=== PATIENT | male | born 1955 | race Caucasian/White ===

== ENCOUNTER 2018-01-21 09:13 | Day surgery (SDC) | payer BC ==
[2018-01-16 15:10] VITALS: BMI 26.9
[2018-01-21 09:35] VITALS: RESP 16; TEMP 97.2
[2018-01-21] MEDS: LACTATED RINGERS 1,000 ML IV SCH ×2 (09:53→10:01)
[2018-01-21] MEDS ORDERED: LIDOCAINE 1% 20 ML VIAL (10MG/ML) FOR IV START SQ ONE (09:53)
[2018-01-21] MEDS ORDERED: PROPOFOL 10 MG/ML 20 ML VIAL IV ONE (10:08)
[2018-01-21] MEDS ORDERED: LIDOCAINE 1% INJ 10MG/ML (20 ML MDV) ONE (10:08)
--- NOTE | 2018-01-21 10:36 | P.PCN ---
Date of Procedure: 01/21/18 Procedure(s) Performed: Procedure: Colonoscopy and polypectomy. Preoperative diagnosis: Screening for neoplasia. Postoperative diagnosis: Small polyp distal sigmoid snared but no large polyps or cancer. Preparation: HalfLytely prep. Sedation: Was provided by anesthesia. Brief clinical history: The patient is a 62-year-old male who is scheduled for this evaluation for screening for neoplasia age being his risk factor. He has no abdominal complaints, bleeding or anemia. His prior exam was around 10 years ago. Procedure: With the patient on his left lateral decubitus position and after informed consent and adequate sedation, the perianal area was inspected and it did not show any fissures or fistulas. There were no masses felt on digital rectal examination. The Olympus CFQ 160L video colonoscope was then inserted in the rectum in the usual fashion and advanced to the cecum. There was a small polyp in the distal sigmoid which was snared and retrieved by suction, but there were no large polyps or cancer. No obvious diverticular disease or other pathology. I retroflexed the endoscope in the rectum before the endoscope was withdrawn. The patient tolerated the procedure well. Plan: The patient was reassured. Will await pathology results. I anticipate repeating this exam in around 5 years. He will follow up with you as planned.
[2018-01-21 10:49] VITALS: BP 117/71; PULSE 51
== END 2018-01-21 11:18 | disposition home or self-care (01) ==
LOC: ORWHC2ENDO 09:13
DX: Z12.11 Encounter for screening for malignant neoplasm of colon (principal); D12.5 Benign neoplasm of sigmoid colon; M10.9 Gout, unspecified; Z79.899 Other long term (current) drug therapy
CPT/HCPCS: 88305; 45385; J2001; J2704

== ENCOUNTER 2023-05-29 10:45 | Day surgery (SDC) | payer MEDICARE, BC ==
[2023-05-23 11:15] VITALS: BMI 25.7
[2023-05-29] MEDS ORDERED: LACTATED RINGERS 1,000 ML IV SCH (11:01)
[2023-05-29] MEDS ORDERED: LIDOCAINE 1% (10MG/ML) FOR IV START INTRADERMA PRN (11:01)
[2023-05-29 11:05] VITALS: TEMP 97.9
[2023-05-29] MEDS ORDERED: LIDOCAINE 2% INJ 20 MG/ML (2 ML VIAL) ONE (11:37)
[2023-05-29] MEDS ORDERED: PROPOFOL 10 MG/ML 20 ML VIAL IV ONE (11:37)
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
--- NOTE | 2023-05-29 11:58 | P.PCN ---
Date of Procedure: 05/29/23 Procedure(s) Performed: PREOPERATIVE DIAGNOSIS: Screening with history of polyps POSTOPERATIVE DIAGNOSIS: Multiple colon polyps PROCEDURE: Colonoscopy with snare polypectomy ANESTHESIA: MAC SURGEON: Chirag Damon M.D. SPECIMENS: Polyps ENDOSCOPIC PROCEDURE: The patient was placed on the endoscopy table in the left decubitus position. The Olympus colonoscope was inserted into the anus and passed under direct visualization to the base of the cecum. The appendiceal orifice was visualized. From that point the scope was slowly withdrawn inspecting all surfaces carefully. There was a polyp at the base of the cecum. This was removed using the snare with cautery technique. The ascending and transverse colon appeared normal. In the descending colon the patient had 2 polyps both removed using the snare with cautery technique. In the sigmoid colon an additional polyp was removed in a similar fashion. The rectum appeared normal. There was no significant diverticular disease noted. Digital rectal examination was normal. The patient was taken to the recovery room in stable condition per anesthesia guidelines. RECOMMENDATIONS: Await biopsy results. Repeat colonoscopy 5 years.
[2023-05-29 12:17] VITALS: RESP 18
[2023-05-29 12:32] VITALS: BP 164/85
[2023-05-29 12:35] VITALS: PULSE 58
== END 2023-05-29 12:45 | disposition home or self-care (01) ==
LOC: ORWHC2ENDO 10:45
PROVIDERS: ATTEND Surgery
DX: Z12.11 Encounter for screening for malignant neoplasm of colon (principal); D12.4 Benign neoplasm of descending colon; D12.5 Benign neoplasm of sigmoid colon; I10 Essential (primary) hypertension; Z86.010 Personal history of colon polyps; Z87.891 Personal history of nicotine dependence; Z79.899 Other long term (current) drug therapy
CPT/HCPCS: 88305; 45385; J2704; J2001

== ENCOUNTER → 2024-01-17 | Outpatient (CLI) | payer MEDICARE, BC ==
--- NOTE | 2024-01-17 08:46 | US ---
EXAMINATION TYPE: US duplex aorta DATE OF EXAM: 01/17/2024 COMPARISON: NONE CLINICAL INDICATION: Male, 68 years old with history of Z13.6 SCREENING FOR CARDIOVASCULAR DISORDERS; screening TECHNIQUE: Multiple sonographic images of the abdominal aorta are obtained. FINDINGS: EXAM MEASUREMENTS: Abdominal Aorta: Proximal: 2.1 x 2.1cm Mid: 2.2 x 2.3cm Distal: 2.0 x 1.9cm Bifurcation: obscured FIRE ASSISTANT NOTES: Technical limitations due to large amount of overlying bowel gas. Bifurcation ob scured. No evidence of AAA within visualized portions at this time IMPRESSION: No evidence for abdominal aortic aneurysm.
== END | disposition home or self-care (01) ==
LOC: RADUSWWP 07:43
PROVIDERS: ATTEND Family Medicine
DX: Z13.6 Encounter for screening for cardiovascular disorders (principal)
CPT/HCPCS: 76706

== ENCOUNTER → 2024-06-04 | Outpatient (CLI) | payer MEDICARE, BC ==
--- NOTE | 2024-06-24 11:24 | MR ---
Patient: Eusebio Wick R Ordering Physician: Unknown, Unknown ID: [id number] Phone, Pager: Phone: N/A Pager: N/A : [phone] Age/Gender: 68Y, M Primary Location: N/A Procedure: MRI PROSTATE W/WO Stud y Date: 06/04/2024 6:53:27 AM EXAMINATION TYPE: MR Prostate wo/w con DATE OF EXAM: 06/07/2024 11:51 AM COMPARISON: None. CLINICAL INDICATION: Elevated PSA TECHNIQUE: Multi-planar, multi-sequence imaging of the pelvis is performed prior to and following the uncomplicated administration of bolus intravenous gadolinium. CONTRAST: 9 cc Gadavist Interpretive Criteria: PI-RADS v2.1 SERUM PSA: 4.65, 12/2023 SURGICAL PATHOLOGY: No data available. FINDINGS: Prostatic dimensions: 4.4 x 4.5 x 3.7 cm. "Bullet" Volume:47.95 (PSA density=0.10 ng/mL/mL) CENTRAL GLAND (Central and Transition Zones/CZ+TZ): Multiple bilateral, heterogenous appearing hypertrophic stromal nodules, without suspicious lesion. ( PI-RADS 2) PERIPHERAL ZONE (PZ): Posterior right lateral right peripheral zone apex measuring 10 x 8 mm. (PI-RADS 4) SEMINAL VESICLES (SV): Symmetric and unremarkable. PERIPROSTATIC TISSUES: Unremarkable. LYMPH NODES: No enlarged pelvic lymph node. REMAINING PELVIS: Bladder wall is within normal limits given distention. No abnormal free or organized intrapelvic fluid collection. No pathologic bowel dilation or mural thickening. Right fat containing inguinal hernia OSSEOUS STRUCTURES: No suspicious osseous abnormality. IMPRESSION: 1. PI-RADS 4 lesion right peripheral zone apex measuring 10 x 8 mm 2. Mild BPH, estimated gland volume 47.95 mL. 3. No suspicious osseous lesion. No lymphadenopathy. No evidence of prostate adenocarcinoma involving the periprostatic tissues.a
== END | disposition home or self-care (01) ==
LOC: RADMRIMAIN 07:17
PROVIDERS: ATTEND Urology
DX: C61 Malignant neoplasm of prostate (principal); N40.0 Benign prostatic hyperplasia without lower urinary tract symptoms; R97.20 Elevated prostate specific antigen [PSA]
CPT/HCPCS: 72197; A9585

== ENCOUNTER → 2024-07-01 | Outpatient (CLI) | payer MEDICARE, BC ==
[2024-07-01 15:33] LABS: Basophils # (A) 0.03 X 10*3/uL (0.00-0.10); Basophils % (A) 0.4 %; Eosinophils # (A) 0.36 X 10*3/uL (0.04-0.35); Eosinophils % (A) 4.9 %; HCT 40.6 % (39.6-50.0); HGB 13.2 g/dL (13.0-17.0); Lymphocytes # (A) 1.74 X 10*3/uL (0.90-5.00); Lymphocytes % (A) 23.5 %; MCH 31.4 pg (27.0-32.0); MCHC 32.5 g/dL (32.0-37.0); MCV 96.7 FL (80.0-97.0); Mean Platelet Volume 9.8 FL (9.5-12.2); Monocytes # (A) 0.51 X 10*3/uL (0.20-1.00); Monocytes % (A) 6.9 %; NRBC Per 100 WBC 0 X 10*3/uL (0.00-0.01); Neutrophils # (A) 4.75 X 10*3/uL (1.80-7.70); Platelet Count 214 X 10*3/uL (140-440); RDW 11.9 % (11.5-14.5); WBC 7.41 X 10*3/uL (4.50-10.00)
[2024-07-01 15:40] LABS: Blood Urea Nitrogen 14.4 mg/dL (9.0-27.0); Calcium 9.4 mg/dL (8.7-10.3); Carbon Dioxide 23.5 mmol/L (21.6-31.8); Chloride 108 mmol/L (96-109); Glucose 103 mg/dL (70-110); Potassium 4.8 mmol/L (3.5-5.5); Sodium 141 mmol/L (135-145)
[2024-07-01 16:24] LABS: Appearance,Urine Clear (Clear); Bilirubin,Urine Negative (Negative); Blood,Urine Negative (Negative); Color,Urine Yellow (Yellow); Ketones,Urine Negative (Negative); Nitrite,Urine Negative (Negative); Specific Gravity,Urine 1.016 (1.001-1.030); Urobilinogen,Urine 0.2 E.U./DL
== END | disposition home or self-care (01) ==
LOC: LABPAT 10:16
PROVIDERS: ATTEND Urology
DX: C61 Malignant neoplasm of prostate (principal)
CPT/HCPCS: 80048; 81003; 85025; 86850; 86900; 86901; 87086

== ENCOUNTER 2024-07-11 05:40 | Day surgery (SDC) | payer MEDICARE, BC ==
[2024-07-08 09:15] VITALS: BMI 25.0
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
[2024-07-11] MEDS: IV FLUID CONTINUATION 1,000 ML IV ONE ×4 (06:15)
[2024-07-11] MEDS: MIDAZOLAM 2 MG/2 ML VIAL IV ONE (07:09)
[2024-07-11] MEDS ORDERED: LIDOCAINE 1% (10MG/ML) FOR IV START INTRADERMA PRN (07:11)
--- NOTE | 2024-07-11 07:25 | P.ANPRN ---
Procedure Note - Anesthesia - Nerve Block Performed Bilateral Erector Spinae Single Time Out Performed: Yes Date of Procedure: 07/11/24 Procedure Start Time: : Procedure Stop Time: :18 Location of Patient: PreOp Indication: Acute Post-Operative Pain, Analgesia, Requested by Surgeon Sedation Type: Sedate with meaningful contact maintained Preparation: Sterile Prep Position: Prone Catheter: None Needle Types: Pajunk Needle Gauge: 21 Ultrasound used to visualize needle placement: Yes Ultrasound used to observe medication spread: Yes Injectate: 0.5% Ropivacaine (see comment for volume) (Ropiv 20ml+Decadron 4mg--- Each side. Needle level T11) Blood Aspirated: No Pain Paresthesia on Injection Noted: No Resistance on Injection: Normal Image Stored and Saved: Yes Events: Uneventful and Well Tolerated
[2024-07-11] MEDS ORDERED: NEOSTIGMINE 1 MG/ML 10 ML VIAL ONE (07:33)
[2024-07-11] MEDS ORDERED: PROPOFOL 10 MG/ML 20 ML VIAL IV ONE (07:33)
[2024-07-11] MEDS ORDERED: LIDOCAINE 1% INJ 10MG/ML (20 ML MDV) ONE (07:33)
[2024-07-11] MEDS ORDERED: WATER FOR INJECTION, STERILE 10 ML VIAL IV ONE (07:33)
[2024-07-11] MEDS: DEXAMETHASONE SOD PHOSPHATE 4 MG/ML 1 ML VIAL IV ONE (07:33)
[2024-07-11] MEDS ORDERED: fentaNYL (PF) 50 MCG/ML 2 ML AMP ONE (07:33)
[2024-07-11] MEDS ORDERED: SUCCINYLCHOLINE CHLORIDE 200 MG/10 ML VIAL IV ONE (07:33)
[2024-07-11] MEDS: ONDANSETRON 4 MG/2 ML VIAL IVP ONE (07:33)
[2024-07-11] MEDS ORDERED: KETAMINE HCL IN 0.9 % NACL 50 MG/5 ML SYRINGE ONE (07:33)
[2024-07-11] MEDS ORDERED: ePHEDrine 50 MG/ML 1 ML VIAL ONE (07:33)
[2024-07-11] MEDS ORDERED: ROCURONIUM 10 MG/ML (5 ML VIAL) IV ONE (07:33)
[2024-07-11] MEDS ORDERED: MIDAZOLAM 2 MG/2 ML VIAL ONE (07:33)
[2024-07-11] MEDS ORDERED: DEXAMETHASONE SOD PHOSPHATE 4 MG/ML 1 ML VIAL ONE (07:33)
[2024-07-11] MEDS ORDERED: GLYCOPYRROLATE 0.2 MG/ML 2 ML VIAL ONE (07:33)
[2024-07-11] MEDS ORDERED: ROPIVACAINE 5 MG/ML 30 ML VIAL ONE (07:33)
[2024-07-11] MEDS: HEPARIN SODIUM,PORCINE 5,000 UNIT/ML 1 ML VIAL SQ PRN (07:34)
[2024-07-11] MEDS: LACTATED RINGERS 1,000 ML IV SCH (07:35)
[2024-07-11] MEDS: BUPIVACAINE (PF) 0.25% 30 ML VIAL SQ ONE ×2 (08:06→11:20)
[2024-07-11] MEDS ORDERED: ONDANSETRON 4 MG/2 ML VIAL IVP PRN (11:35)
[2024-07-11] MEDS ORDERED: HYDROcodone/APAP 5-325MG 1 EACH TAB PO PRN (11:36)
[2024-07-11] MEDS: HYDROmorphone 0.5 MG/0.5 ML SYRINGE IVP PRN (11:40)
[2024-07-11] MEDS: droPERidol 5 MG/2 ML VIAL IVP ONE (15:08)
[2024-07-11] MEDS: DEXTROSE 5%-0.45% NACL 1,000 ML IV SCH (15:09)
[2024-07-11] MEDS: KETOROLAC 15 MG/ML 1 ML VIAL IVP SCH (15:09)
[2024-07-11] MEDS: HEPARIN SODIUM,PORCINE 5,000 UNIT/ML 1 ML VIAL SQ SCH (15:30)
--- NOTE | 2024-07-11 16:53 | P.OP ---
Date of Procedure: 07/11/24 Preoperative Diagnosis: prostate cancer Postoperative Diagnosis: Same Procedure(s) Performed: Robotic assisted laparoscopic radical prostatectomy with bilateral pelvic lymph node dissection Implants: None Anesthesia: KARLIE Surgeon: Yoni Obrien Estimated Blood Loss (ml): 100 Pathology: other (Prostate, bilateral seminal vesicle, bilateral pelvic lymph node dissection) Condition: stable Disposition: PACU Indications for Procedure: This is a 69-year-old male with history of Riya 7(4+3) prostate cancer. Discussed with him given his pathology option of a robotic radical prostatectomy versus radiation therapy. Risk and benefit of each approach were discussed in detail. He agreed to proceed with a robotic radical prostatectomy aware of the risk which includes but not limited to bleeding, infection, urinary incontinence, erectile dysfunction, injury to nearby organs which includes but not limited to bowel, rectum, bladder. Risk of anesthesia was also discussed. Discussed also given his previous history of ex lap there is potential if there is significant adhesions I may not be able to perform the procedure, and there is also risk of bowel injury during the lysis of adhesion. Discussed also risk of cancer recurrence and the potential of needing additional treatments. He understood all the risk and agreed to proceed Description of Procedure: After preoperative antibiotics were started, the patient was taken to the operating room. Anesthesia was induced and the patient was placed in a low lithitomy position, with adequate padding of the pressure points, shoulders, back, legs and arms. He was then prepped and draped in the standard fashion. A critical pause was performed using two patient identifiers. A 16F strickland catheter was placed to gravity drainage. Next a supraumbilical incision was made, subcutaneous tissue was dissected down using the cautery. At this point the fascia was identified, fascia was incised sharply. Next using the Metzenbaum scissor access was obtained to the peritoneal cavity by incising the peritoneum. Using finger dissection all the omental fat attachments were released from the incision. At this point the gel point was placed in place and insufflation was obtained. The camera was placed through the gel point, laparoscopy was performed showed significant adhesion along the left side of the abdomen, there was no evidence of any bowel injury on entry. At this point using the laproscopic LigaSure adhesions were taken down along the left side, of note adhesion involved the omentum as it was adherent to the sidewall. Adhesion was taken down until I could safely place the tube ports on the left side. There was no evidence of bleeding, and no injury during the bowel during lysis of adhesion. Under direct vision a 8mm robotic ports was placed lateral to each rectus slightly below the camera port. The left iliac fossa 8mm port was placed. The right accounts payable assistant right iliac fossa 12mm port and right paramedian 5mm portwere placed. After the patient was placed in the trendelenberg position, the robot was then docked to the 8mm robotic ports and then each robotic arm and tower was checked in relation to the patient's legs and hands to avoid inadvertent compression. The peritoneal cavity was inspected. An inverted U-shaped incision began laterally to the left medial umbilical ligament and extended high across the midline to the right umbilical ligament. The limbs of the "U" extended to the level of the vasa on both sides. We next developed the preperitoneal space and the space of Retzius. Cautery was used to dissected the bladder away from the prostate. After the anterior bladder neck was incised and the bladder entered the the posterior bladder neck was exposed and the ureteral orifces identified. The posterior bladder neck was then incised and dissected away from the prostate. The vas and the seminal vesicles were now exposed and dissected to their insertions into the prostate and were not spared. The posterior layer of the Denonvillier's fascia was incised to enter meg the plane between prostate and perirectal fat. Each lateral pedicle was controlled with vessel sealer. No nerve preservation was performed on the right, partial nerve preservation was performed on the left. the puboprostatic ligament was incised where it inserted into the apex of the prostate and a plane between urethra and dorsal venous complex developed to expose the anterior urethral surface. The anterior wall of the urethra was transected with the cut setting a few millimeters distal to the apex of the prostate. The dorsal vein was ligated using 3-0 V lock bilateral obturator and external iliac lymph node packets were carefully dissected after careful visualization of the hypogastric artery and obturator nerve. There was careful attention paid to hemostasis with judicious use of cautery. The urethrovesical anastomosis was performed . the posterior denovillers was reapproximated using 3-0 V lock. A 6 and 6 inch 3-0 V-Lock suture was used to anastomose the urethra and bladder, starting at the 6:00 posterior position. Mucosa was secured in every stitch, to ensure a mucosa to mucosa anastomosis. The stitch was regularly cinched and the anastomosis tightened. Care was taken to not violate the ureteral orifices. The Strickland catheter was advanced, the bladder filled, and the anastomosis was tested, as described above. Anastomsis was watertight at 200 mL The periumbilical fascia was closed with 1-0-PDS suture in figure of 8 fashion. All ports were closed with a subcuticular 4-0 monocryl and Dermabond. Sponge, instrument, and needle counts were correct at the end of the case x2. All specimens including prostate and lymph nodes were sent to pathology for diagnosis and will be available in a week. The patient tolerated the surgery well and without complication. He awoke without difficulty and was taken to the recovery room in stable condition
[2024-07-11 18:07] VITALS: RESP 17
[2024-07-12] MEDS: HYDROmorphone 1 MG/ML 1 ML SYRINGE IVP PRN (02:44)
[2024-07-12] MEDS: PRIMIDONE 50 MG TAB PO SCH (08:28)
[2024-07-12] MEDS: lisinopriL 20 MG TAB PO SCH (08:29)
--- NOTE | 2024-07-12 08:44 | P.DS ---
Providers Attending physician: Yoni Obrien MD Primary care physician: Karli Early [facility] Course: This is a 69-year-old female with history of prostate cancer. Underwent a robotic radical prostatectomy on July 11, please see op note dated July 11 for surgery details. Patient was admitted to the hospital postoperatively. Patient was discharged home on postop day #1, at time of discharge patient was tolerating a diet, ambulating, pain was controlled Plan - Discharge Summary Discharge Rx Participant: No New Discharge Prescriptions: New HYDROcodone/APAP 5-325MG [[place] 5-325] 1 tab PO Q6HR PRN 3 Days #6 tab PRN Reason: Pain Ciprofloxacin HCl [Cipro] 500 mg PO Q12HR 3 Days #6 tab Ketorolac [Toradol] 10 mg PO Q6HR PRN #15 tab PRN Reason: Pain No Action Primidone [Mysoline] 100 mg PO QAM lisinopriL [Zestril] 20 mg PO QAM Discharge Medication List Primidone [Mysoline] 100 mg PO QAM 05/23/23 [History] lisinopriL [Zestril] 20 mg PO QAM 05/23/23 [History] Ciprofloxacin HCl [Cipro] 500 mg PO Q12HR 3 Days #6 tab 07/12/24 [Rx] HYDROcodone/APAP 5-325MG [[place] 5-325] 1 tab PO Q6HR PRN 3 Days #6 tab 07/12/24 [Rx] Ketorolac [Toradol] 10 mg PO Q6HR PRN #15 tab 07/12/24 [Rx] Activity/Diet/Wound Care/Special Instructions: It is normal to have blood in the urine You may shower, no baths No heavy lifting or straining for 4 weeks Start your antibiotics 1 day prior to your follow-up appointment
[2024-07-12 14:00] VITALS: BP 121/63; PULSE 59; TEMP 97.9
== END 2024-07-12 15:37 ==
LOC: OR 05:40 → 4SSUR 14:26 → OR 07-12 15:37
PROVIDERS: ATTEND Urology
DX: C61 Malignant neoplasm of prostate
CPT/HCPCS: 38571; 55866; 64999; 88307; 88309; S2900